=== PATIENT | male | born 1975 | race Caucasian/White ===

== ENCOUNTER → 2017-01-01 | Outpatient (CLI) | payer MEDICAID ==
[~2017-01-01] MED LIST: DEPAKOTE DR500 MG PO; Depakote500 MG PO; IBU800 MG PO; KEFLEX 500MG.500 MG PO; LORTAB 5/500 501 TAB PO; MICRO-K 10 MEQ10 MEQ PO; MONODOX100 MG PO; [UNRECOGNIZED DRUG - OTHER] PO
--- NOTE | 2017-01-02 05:13 | RADIOLOGY REPORT PS360 ---
[id number] VIEWS HISTORY: Right-sided shoulder pain SUPRASCAPULAR ENTRAPMENT NEUROPATHY OF RIGHT SIDE ORDERING PHYSICIAN: RUMA RODRÍGUEZ PATIENT AGE: 41 years COMPARISON: 02-19 FINDINGS: No fracture or dislocation. No lytic or blastic change. There is subacromial stenosis with mild downsloping of the acromion which may result in impingement symptomatology. 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 No other significant anomalies are evident. IMPRESSION: 1. No acute finding. 2. Low-lying acromium which may result in impingement symptomatology and may be better evaluated with MRI of clinically warranted 3. 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
--- NOTE | 2017-01-02 05:16 | RADIOLOGY REPORT PS360 ---
EXAM: CERVICAL SPINE 4 OR 5 VIEWS HISTORY: Right-sided neck pain SUPRASCAPULAR ENTRAPMENT NEUROPATHY OF RIGHT SIDE ORDERING PHYSICIAN: RUMA RODRÍGUEZ PATIENT AGE: 41 years COMPARISON: None FINDINGS: There is mild degenerative disc disease with some decrease in the disc space with endplate osteophytes at C3-C4, C4-C5, and C5-C6. There is normal alignment. Minimal left foraminal narrowing is noted at C5 C6 and mild right foraminal narrowing at C3-C4. Normal alignment. No fracture or dislocation. No lytic or blastic change. IMPRESSION: Mild cervical spondylosis as described above
== END ==
LOC: RAD 17:28
DX: G56.81 Other specified mononeuropathies of right upper limb (principal)

== ENCOUNTER → 2017-03-12 | Outpatient (CLI) | payer MEDICAID ==
--- NOTE | 2017-03-13 10:20 | RADIOLOGY REPORT PS360 ---
MRI-C-SPINE W/O, MRI-3D RENDERING/MYELOGRAM HISTORY: Neck pain, right arm numbness PARESTHESIA OF RT ARM, CERVICAL OSTEOPHYTE ORDERING PHYSICIAN: RUMA RODRÍGUEZ PATIENT AGE: 41 years COMPARISON: 01/01/2017 TECHNIQUE: Standard multiplanar multiecho sequences are performed without contrast. 3-D MIP and myelographic images are also rendered and reviewed FINDINGS: There is straightening of the cervical lordosis. The craniocervical junction has an unremarkable appearance. There are some sclerotic changes involving the dens with decrease T1 and T2 signal superiorly nonspecific. C2-C3: Unremarkable. C3-C4: There is bulging disc with right paracentral and foraminal disc osteophyte complex causing moderate right lateral recess narrowing and severe right-sided foraminal narrowing along with canal stenosis at 10 mm. There is some flattening upon the right aspect of the cord at this level. C4-C5: Mild bulging disc with minimal endplate osteophyte. Borderline canal stenosis of the left millimeters without cord flattening. C5-C6: Mild concentric bulging disc with mild bilateral foraminal narrowing slightly greater on the left with borderline canal stenosis. C6-C7: Minimal right paracentral disc protrusion without cord impingement or flattening. C7-T1: Unremarkable. IMPRESSION: 1. C3-C4: There is bulging disc with right paracentral and foraminal disc osteophyte complex causing moderate right lateral recess narrowing and severe right-sided foraminal narrowing along with canal stenosis at 10 mm. There is some flattening upon the right aspect of the cord at this level. 2. C4-C5: Mild bulging disc with minimal endplate osteophyte. Borderline canal stenosis of the left millimeters without cord flattening. 3. C5-C6: Mild concentric bulging disc with mild bilateral foraminal narrowing slightly greater on the left with borderline canal stenosis. 4. C6-C7: Minimal right paracentral disc protrusion without cord impingement or flattening.
== END ==
LOC: RAD 08:00
DX: R20.2 Paresthesia of skin (principal); M25.78 Osteophyte, vertebrae